=== PATIENT | male | born 1990 ===

== ENCOUNTER 2021-07-25 11:47 | Emergency (ER) | payer SELFPAY ==
[2021-07-25 13:11] LABS: RESPIRATORY SYNCYTIAL VIR NAA NEGATIVE (NEGATIVE)
[2021-07-25 13:12] LABS: CORONAVIRUS COVID-19 NAA POSITIVE (NEGATIVE)
--- NOTE | 2021-07-25 13:39 | EDM.PDOC ---
ED HPI GENERAL MEDICAL PROBLEM - General Chief Complaint: General Stated Complaint: COVID TEST Time Seen by Provider: 07/25/21 13:39 Source of Information: Reports: Patient, RN, RN Notes Reviewed History Limitations: Reports: No Limitations - History of Present Illness INITIAL COMMENTS - FREE TEXT/NARRATIVE: Pt presents to ER with c/o onset this morning of fever, dry cough, sore throat, and generalized body aches. Denies chest pain or shortness of breath. Pt has been exposed to COVID over the last few days. Pt claims he had COVID infection about a year ago and recovered without sequelae. He had the J&J COVID vaccine in 2020. Onset: Today Duration: Constant Location: Reports: Generalized Quality: Reports: Ache Severity: Moderate Improves with: Reports: None Worsens with: Reports: None Associated Symptoms: Reports: No Other Symptoms - Related Data Allergies Allergy/AdvReac Type Severity Reaction Status Date / Time seas Allergy Other Uncoded 07/25/21 12:31 Home Meds: Home Meds . [No Known Home Meds] 07/25/21 [History] Past Medical History HEENT History: Reports: None Cardiovascular History: Reports: None Respiratory History: Reports: None Gastrointestinal History: Reports: None Genitourinary History: Reports: None Musculoskeletal History: Reports: None Neurological History: Reports: None Psychiatric History: Reports: None Endocrine/Metabolic History: Reports: None Hematologic History: Reports: None Immunologic History: Reports: None Oncologic (Cancer) History: Reports: None Dermatologic History: Reports: None - Infectious Disease History Infectious Disease History: Reports: Novel Coronavirus - Past Surgical History Head Surgeries/Procedures: Reports: None Social & Family History - Tobacco Use Tobacco Use Status *Q: Never Tobacco User Second Hand Smoke Exposure: No - Caffeine Use Caffeine Use: Reports: Soda - Recreational Drug Use Recreational Drug Use: No - Living Situation & Occupation Occupation: Employed ED ROS GENERAL - Review of Systems Review Of Systems: Comprehensive ROS is negative, except as noted in HPI. ED EXAM, GENERAL - Physical Exam Exam: See Below Exam Limited By: No Limitations General Appearance: Alert, WD/WN, No Apparent Distress Eye Exam: Bilateral Eye: Normal Inspection Nose: Normal Inspection, Normal Mucosa, No Blood Throat/Mouth: Normal Inspection, Normal Lips, Normal Teeth, Normal Gums, Normal Oropharynx, Normal Voice, No Airway Compromise Head: Atraumatic, Normocephalic Neck: Normal Inspection Respiratory/Chest: No Respiratory Distress, Lungs Clear, Normal Breath Sounds, No Accessory Muscle Use, Chest Non-Tender Cardiovascular: Regular Rate, Rhythm Neurological: Alert, Oriented, No Motor/Sensory Deficits Psychiatric: Normal Affect, Normal Mood Skin Exam: Warm, Dry, Intact, Normal Color, No Rash Course - Vital Signs Last Recorded V/S: Last Vital Signs Temp 98.6 F 07/25/21 12:27 Pulse 106 H 07/25/21 12:27 Resp 16 07/25/21 12:27 BP Pulse Ox 98 07/25/21 12:27 - Orders/Labs/Meds Labs: Laboratory Tests 07/25/21 Range/Units 12:00 Influenza Type A RNA Negative (NEGATIVE) RSV RNA ([facility]) Negative (NEGATIVE) Influenza Type B RNA Negative (NEGATIVE) SARS-CoV-2 RNA ([facility]) Positive H (NEGATIVE) Departure - Departure Time of Disposition: 13:48 Disposition: Home, Self-Care 01 Condition: Good Clinical Impression: COVID-19 virus infection - Discharge Information *PRESCRIPTION DRUG MONITORING PROGRAM REVIEWED*: Not Applicable *COPY OF PRESCRIPTION DRUG MONITORING REPORT IN PATIENT ZEINA: Not Applicable Instructions: 10 Things You Can Do to Manage Your COVID-19 Symptoms at Home - [facility] (01/30/2021) Forms: ED Department Discharge Additional Instructions: Self quarantine by isolating at home for 10 days, starting today. Use Tylenol (Acetaminophen) and/or Ibuprofen (Motrin/Advil) as needed for fevers or body aches. Follow directions on label for dosing and precautions. Drink plenty of water, Pedialyte, or Gatorade. Follow up in clinic or return to ER if you develop any difficulty breathing. Sepsis Event Note (ED) - Evaluation Sepsis Screening Result: No Definite Risk - Focused Exam Vital Signs: Vital Signs Temp Pulse Resp Pulse Ox 07/25/21 12:27 98.6 F 106 H 16 98
== END 2021-07-25 13:56 | disposition home or self-care (01) ==
LOC: DL.ED 11:47
DX: U07.1 COVID-19 (principal); Z91.048 Other nonmedicinal substance allergy status
CPT/HCPCS: 0241U; 99283